=== PATIENT | female | born 1965 | race Caucasian/White ===

== ENCOUNTER 2016-09-28 21:38 | Emergency (ER) | payer MEDICAID, OTHER ==
[~2016-09-28] VITALS: Ht 154.9 cm; Wt 110.0 kg
[~2016-09-28 21:38] MED LIST: BENA20TA48 PO; LOSA50TA6 PO; METO50TA16 PO; NIFE30TA66 PO
[2016-09-28 21:55] VITALS: Ht 154.9 cm; Wt 110.0 kg
[2016-09-28] MEDS ORDERED: KETOROLAC 60 MG INJ IM STA (23:21)
--- NOTE | 2016-09-29 00:57 | ERD ---
ER Documentation Chief Complaint Date/Time DATE: 09/29/16 TIME: 00:54 Chief Complaint left leg pain x 5 days. denies injury. also c/o pain left arm/cough HPI This is a 51-year-old female presents to the ER complaining of left heel pain that extends into her left calf. Patient states that pain has been going on for the last 5 days pain is throbbing in quality it is worse whenever she moves. Patient denies any redness or swelling of her calf. She denies any chest pain, shortness of breath. Patient has not traveled anywhere recently. She has not had any recent surgeries and has never had any blood clots in her leg. She is also complaining of right thumb pain that extends into her wrist and forearm. Patient denies any trauma to her legs or arms. Patient denies any fevers or chills. Patient has not tried anything for the pain. ROS 12 point review of systems was done, all negative except per HPI. Medications Home Meds Active Scripts Ibuprofen* (Motrin*) 600 Mg Tab, 600 MG PO Q6H Y for PAIN AND OR ELEVATED TEMP, #30 TAB Prov:SOBEIDA GAXIOLA 09/29/16 Reported Medications Nifedipine* (Procardia XL*) 30 Mg/Bottle Tab.osm.24, 30 MG PO DAILY, TAB.SA 04/03/14 Benazepril Hcl* (Benazepril Hcl*) 20 Mg Tablet, 20 MG PO BID, TAB 04/03/14 Losartan Potassium* (Losartan Potassium*) 50 Mg Tablet, 50 MG PO BID, TAB 04/03/14 Metoprolol Succinate* (Toprol XL*) 50 Mg Tab.er.24h, 50 MG PO DAILY, TAB 04/03/14 Allergies Allergies: Coded Allergies: No Known Allergy (Unverified , 09/28/16) PMhx/Soc History of Surgery: Yes (C-[id number] ') Anesthesia Reaction: No Hx Neurological Disorder: No Hx Respiratory Disorders: Yes (ASTHMA) Hx Cardiac Disorders: Yes (HTN) Hx Psychiatric Problems: No Hx Miscellaneous Medical Probl: No Hx Alcohol Use: No Hx Substance Use: No Hx Tobacco Use: No Smoking Status: Never smoker Physical Exam Vitals Vital Signs Date Time Temp Pulse Resp B/P Pulse Ox O2 Delivery O2 Flow Rate FiO2 09/29/16 02:33 98.3 18 18 120/78 99 Room Air 09/28/16 21:55 97.7 84 20 136/84 99 Physical Exam GENERAL: The patient is well developed and appropriate for usual state of health , in no apparent distress. HEENT: Atraumatic. Conjunctivae are pink. Pupils equal, round, and reactive to light. Extraocular muscles are grossly intact. Bilateral tympanic membranes are clear with no evidence of erythema, effusion or dulling of the light reflex. The oropharynx is clear with no erythema or exudates. NECK: C-spine is soft and supple. There is no cervical lymphadenopathy. CHEST: Clear to auscultation bilaterally. There are no rales, wheezes or rhonchi. HEART: Regular rate and rhythm. No murmurs, clicks, rubs or gallops. ABDOMEN: Soft, nontender and nondistended. Good bowel sounds. No rebound or guarding. No gross peritonitis. No gross organomegaly or masses. No Thompson sign or McBurney point tenderness. BACK: No midline or flank tenderness. EXTREMITIES: Patient is tender to palpation to the right heel she is tender to palpation along the right calf. There is no edema or swelling of the calf. Patient does not have any knee pain she has normal range of motion of her knee. She is tender to palpation along the lateral left thumb, wrist and distal forearm. Patient has full range of motion of her thumb and wrist. No snuffbox tenderness. No elbow pain. He is neurovascularly intact. He has normal strength and sensation to radial ulnar and medial nerves. NEURO: Alert and oriented. SKIN: The skin is warm and dry. Results 24 hrs Current Medications Medications (Trade) Dose Ordered Sig/Oscar Route PRN Reason Start Time Stop Time Status Last Admin Dose Admin Ketorolac Tromethamine (Toradol) 60 mg ONCE STAT IM 09/28/16 23:21 09/28/16 23:23 DC 09/29/16 00:31 Procedures/MDM This is a 51-year-old female presents to the ER with multiple complaints. In regards to patient's leg pain this may be a strain. Patient did not have any evidence of DVT or fracture dislocation. I doubt compartment syndrome, osteomyelitis, deep space infection. Is neurovascularly intact. Patient may have a small avulsion fracture of the distal radius, because of this patient was put in a volar splint. Patient was neurovascularly intact before and after splint application. Patient needs to follow-up with her primary care doctor within 1-2 days or return to ER sooner if symptoms worsen. Patient will be sent home with ibuprofen for pain. Medical decision making assured with the patient she understands and agrees with plan. Departure Diagnosis: Primary Impression: Multiple complaints Condition: Stable SOBEIDA GAXIOLA Sep 29, 2016 00:57
--- NOTE | 2016-09-29 01:27 | RADRPT ---
PROCEDURE: RIGHT ANKLE - 3 VIEWS CLINICAL INDICATION: 51-year-old female with right ankle pain. TECHNIQUE: AP, oblique and lateral views of the right ankle were performed. The images reviewed on a PACS workstation. COMPARISON: None. FINDINGS: The bones of the ankle appear intact, with no evidence of fracture, dislocation, or subluxation. The joint spaces are preserved. The mortise appears intact. Bone mineralization is within normal limits . There is mild diffuse soft tissue swelling. IMPRESSION: 1. No acute fracture or dislocation. 2. Soft tissue swelling. .Booker Guerrero MD, Date Time Electronically viewed and signed by .Booker Guerrero MD, MD on 09/29/2016 01:27 .Rogelio/
--- NOTE | 2016-09-29 01:30 | RADRPT ---
PROCEDURE: LEFT FOREARM - 2 VIEWS CLINICAL INDICATION: 51-year-old female with left arm pain. TECHNIQUE: AP and lateral views of the left forearm were obtained. The images were viewed on a PAC S workstation. COMPARISON: None. FINDINGS: There is no evidence for an acute fracture or dislocation. The joint spaces are intact. The bone ma rrow mineralization is within normal limits. No radiopaque foreign body is seen. IMPRESSION: Unremarkable left forearm radiographs. .Booker Guerrero MD, MD Date Time Electronically viewed and signed by .Booker Guerrero MD, MD on 09/29/2016 01:29 .Rogelio/
--- NOTE | 2016-09-29 01:34 | RADRPT ---
PROCEDURE: XR Hand. CLINICAL INDICATION: Trauma. Pain. TECHNIQUE: Three views of the left hand were obtained. COMPARISON: No prior studies are available for comparison. FINDINGS: There is a small ossific density at the ventral aspect of the radius, possibly vascular calcificatio n. There are no definite fractures. Joint relationships are maintained. Bone mineralization is wi thin normal limits. Soft tissues are unremarkable. IMPRESSION: Small ossific density at the volar aspect of the distal radius, possibly a vascular calcification. Otherwise negative. RPTAT: HMVK .Ramos Jarvis MD, MD Date Time Electronically viewed and signed by .Ramos Jarvis MD, on 09/29/2016 01:33 .K/
--- NOTE | 2016-09-29 01:36 | RADRPT ---
PROCEDURE: XR Left Wrist. CLINICAL INDICATION: Trauma. Pain. TECHNIQUE: AP, lateral and oblique views of the left wrist were performed. COMPARISON: No prior studies are available for comparison. FINDINGS: Small ossific density adjacent to volar peripheral aspect of the distal radius. Bones are otherwise intact without evidence for fracture. Joint relationships are maintained. Bone mineralization is within normal limits. Soft tissues are otherwise unremarkable. IMPRESSION: Indeterminate small ossific density adjacent to the distal radius which may represent small avulsion fracture, radiopaque foreign body or vascular calcification. Otherwise negative. RPTAT: HMVK .Ramos Jarvis MD, Date Time Electronically viewed and signed by .Ramos Jarvis MD, on 09/29/2016 01:35 .K/
[2016-09-29] MEDS ORDERED: IBUP-1542 PO (02:04)
[2016-09-29 02:33] VITALS: BP 120/78; PULSE 18; RESP 18; TEMP 98.3
--- NOTE | 2016-09-29 08:34 | RADRPT ---
PROCEDURE: Ultrasound of the right lower extremity venous system. CLINICAL INDICATION: Right leg pain and swelling, deep venous thrombosis TECHNIQUE: Dawson scale with and without compression, color doppler, spectral doppler of the venous system of the right lower extremity was performed. Venous augmentation maneuvers were utilized. COMPARISON: No prior studies are available for comparison. FINDINGS: Common femoral vein: Patent. Superficial femoral vein: Patent. Popliteal vein: Patent. Calf veins: Patent. No soft tissue abnormalities are identified. IMPRESSION: No evidence of a deep vein thrombosis within the right lower extremity. RPTAT: AADD .Vince Ken MD, MD Date Time Electronically viewed and signed by .Vince Ken MD, MD on 09/29/2016 00:29 .B/
== END 2016-09-29 02:30 | disposition home or self-care (01) ==
LOC: FTE 21:38
DX: M79.605 Pain in left leg (principal); M79.644 Pain in right finger(s); I10 Essential (primary) hypertension; J45.909 Unspecified asthma, uncomplicated
CPT/HCPCS: 29125; 73090; 73110; 73130; 73610; 93971; J1885; 96372

== ENCOUNTER 2016-10-08 10:28 | Emergency (ER) | payer OTHER ==
[~2016-10-08] VITALS: Wt 110.0 kg
[~2016-10-08 10:28] MED LIST changes: +IBUP-1542 PO
[2016-10-08] MEDS ORDERED: HYDROmorphONE 1 MG/ML SYG IV STA ×2 (11:12→12:31)
[2016-10-08] MEDS ORDERED: ONDANSETRON 4 MG INJ IV STA ×2 (11:12→12:31)
[2016-10-08] MEDS ORDERED: AMLO5TAB4 PO (11:42)
[2016-10-08] MEDS ORDERED: LISI40TA9 PO (11:42)
[2016-10-08 11:59] LABS: ALBUMIN 4.3 g/dl (3.3-4.9); CHLORIDE 103 mmol/L (97-110)
[2016-10-08 12:00] LABS: POTASSIUM 4.9 mmol/L (3.5-5.1); SODIUM 142 mmol/L (135-144)
[2016-10-08 12:02] LABS: AMYLASE 73 U/L (11-123); CREATININE 0.72 mg/dl (0.44-1.00)
[2016-10-08 12:03] LABS: ALANINE AMINOTRANSFERASE 28 IU/L (13-69); ALBUMIN/GLOBULIN RATIO 1.22; ALKALINE PHOSPHATASE 108 IU/L (42-121); ANION GAP 19 (8-16); ASPARTATE AMINO TRANSFERASE 25 IU/L (15-46); BILIRUBIN,INDIRECT 0.3 mg/dl (0-1.1); BILIRUBIN,TOTAL 0.3 mg/dl (0.2-1.3); BLOOD UREA NITROGEN 29 mg/dl (7-20); CARBON DIOXIDE 25 mmol/L (21-31); CREATINE KINASE 51 IU/L (23-200); GLUCOSE 194 mg/dl (70-220); TOTAL PROTEIN 7.8 g/dl (6.1-8.1)
[2016-10-08 12:04] LABS: CALCIUM 9.3 mg/dl (8.4-10.2)
[2016-10-08 12:06] LABS: BASOPHILS % 0.6 % (0.0-2.0); C-REACTIVE PROTEIN 0.9 mg/dl (0.0-0.9); EOSINOPHILS # 0.2 10^3/ul (0.0-0.5); EOSINOPHILS % 3.3 % (0.0-7.0); HEMATOCRIT 45.7 % (37.0-47.0); HEMOGLOBIN 15.5 g/dl (12.0-16.0); LYMPHOCYTES # 1.8 10^3/ul (0.8-2.9); LYMPHOCYTES % 28.8 % (15.0-51.0); MEAN CORPUSCULAR HEMOGLOBIN 27.1 pg (29.0-33.0); MEAN CORPUSCULAR HGB CONC 33.9 g/dl (32.0-37.0); MEAN CORPUSCULAR VOLUME 79.9 fl (82.0-101.0); MEAN PLATELET VOLUME 9.4 fl (7.4-10.4); MONOCYTE # 0.3 10^3/ul (0.3-0.9); MONOCYTES % 5.4 % (0.0-11.0); NEUTROPHIL # 3.9 10^3/ul (1.6-7.5); NEUTROPHILS % 61.9 % (39.0-77.0); PLATELET COUNT 201 10^3/UL (140-440); RED BLOOD COUNT 5.72 10^6/ul (4.20-5.40); RED CELL DISTRIBUTION WIDTH 17.6 % (11.5-14.5); UNCORRECTED WBC 6.2 10^3/ul (4.8-10.8); WHITE BLOOD COUNT 6.2 10^3/ul (4.8-10.8)
[2016-10-08 12:08] LABS: CONDITION 1; LH ANALYZER COMMENTS 1
[2016-10-08 12:12] LABS: CK-MB 0.65 ng/ml (0.0-2.4)
[2016-10-08 12:17] LABS: TROPONIN-I < 0.012 ng/ml (0.00-0.12)
--- NOTE | 2016-10-08 13:18 | RADRPT ---
PROCEDURE: MRI of the left upper extremity CLINICAL INDICATION: Left upper extremity pain and swelling concern for necrotizing fasciitis TECHNIQUE: Multiplanar multisequence images of the left upper extremity without IV contrast utiliz ing multiple pulse sequences. Images were interpreted at a independent PACS workstation. COMPARISON: Radiographs of the left upper extremity June 29, 2017 FINDINGS: There is no evidence of acute fracture of the visualized portions of the left forearm. At the site of the small density near the radial styloid on the prior radiographs, there is tendinos is and tenosynovitis involving the first extensor tendon compartment (axial 41 and coronal 12) sugge stive of a day, remains tenosynovitis. Small calcific density is not well seen on MRI but may repre sent chronic inflammation at this location. There is no evidence of tendon tear. The remainder of the flexor extensor tendons are intact. There is no muscle atrophy or muscle edema . Bone marrow signal is normal. The assessment of the proximal carpal row is grossly unremarkable. There is no soft tissue gas or drainable fluid collection. IMPRESSION: 1. Findings are most compatible with Dequervain's tenosynovitis, manifest as moderate tendinosis an d tenosynovitis of the first extensor tendon compartment along the radial margin of the radial stylo id. The small density seen on plain films at this location likely represents a calcification relate d to chronic inflammation versus possibly calcium hydroxyapatite deposition, less likely an acute fr acture. 2. No soft tissue gas, drainable fluid collection, or findings suggest necrotizing fasciitis. RPTAT: UU .Buddy Klein MD, Date Time Electronically viewed and signed by .Buddy Klein MD, on 10/08/2016 13:17 .K/
--- NOTE | 2016-10-08 13:28 | ERD ---
ER Documentation Chief Complaint Date/Time DATE: 10/08/16 TIME: 13:17 Chief Complaint LEFT ARM PAIN FROM FX. RAN OUT OF PAIN MEDS. HPI This is a 51-year-old female that presents to the emergency department complaining of severe pain of her left upper extremity. The patient indicates that on September 29, 2016, 9 days prior to arrival she was seen at [facility]. She denies any recent remote trauma that she can recall but was complaining of pain in her left arm and lower extremity. Radiographic imaging have been obtained at that time of her left forearm, left hand and left wrist and indicated there could be a small avulsion fracture in the dorsal aspect of her wrist. Therefore the patient had been placed in a volar splint for immobilization and comfort. She indicates she is currently waiting to see an orthopedic surgeon and has been taking ibuprofen 600 mg for analgesic control. She states however that the pain has intensified to 10 out of 10 in intensity and is exacerbated with movement. She states there is been no swelling of the left upper extremity. She has had no fevers or shaking or chills. She denies any rashes or discoloration of the skin. She has had no shortness of breath at rest or exertion. She is right-handed dominant. She denies any numbness of the left upper extremity peer ROS All systems reviewed and are negative except as per history of present illness. Medications Home Meds Active Scripts Hydrocodone/Acetaminophen ([place] 5-325 Tablet) 1 Each Tablet, 1 EACH PO Q6, #12 TAB Prov:KAITLIN TEMPLE 10/08/16 Ibuprofen* (Motrin*) 600 Mg Tab, 600 MG PO Q6H Y for PAIN AND OR ELEVATED TEMP, #30 TAB Prov:KAITLIN TEMPLE 10/08/16 Reported Medications Amlodipine Besylate* (Norvasc*) 5 Mg Tablet, 5 MG PO DAILY, TAB 10/08/16 Lisinopril* (Lisinopril*) 40 Mg Tablet, 40 MG PO DAILY, #30 TAB 10/08/16 Discontinued Reported Medications Nifedipine* (Procardia XL*) 30 Mg/Bottle Tab.osm.24, 30 MG PO DAILY, TAB.SA 04/03/14 Benazepril Hcl* (Benazepril Hcl*) 20 Mg Tablet, 20 MG PO BID, TAB 04/03/14 Losartan Potassium* (Losartan Potassium*) 50 Mg Tablet, 50 MG PO BID, TAB 04/03/14 Metoprolol Succinate* (Toprol XL*) 50 Mg Tab.er.24h, 50 MG PO DAILY, TAB 04/03/14 Discontinued Scripts Ibuprofen* (Motrin*) 600 Mg Tab, 600 MG PO Q6H Y for PAIN AND OR ELEVATED TEMP, #30 TAB Prov:SOBEIDA GAXIOLA 09/29/16 Allergies Allergies: Coded Allergies: No Known Allergy (Unverified , 10/08/16) PMhx/Soc History of Surgery: No Anesthesia Reaction: No Hx Neurological Disorder: No Hx Respiratory Disorders: No Hx Cardiac Disorders: No Hx Psychiatric Problems: No Hx Miscellaneous Medical Probl: Yes (HTN) Hx Alcohol Use: No Hx Substance Use: No Hx Tobacco Use: No Smoking Status: Never smoker Physical Exam Vitals Vital Signs Date Time Temp Pulse Resp B/P Pulse Ox O2 Delivery O2 Flow Rate FiO2 10/08/16 13:59 98.8 59 20 123/64 99 10/08/16 10:34 98.8 75 20 216/118 99 Physical Exam Constitutional:Well-developed. Well-nourished. HEENT:Normocephalic. Atraumatic.Pupils were equal round reactive to light. Moist mucous membranes.No tonsillar exudates. Neck: No nuchal rigidity. No lymphadenopathy. No posterior cervical spine tenderness or step-offs. Respiratory: Not using accessory muscles of respiration.Lungs were clear to auscultation bilaterally. No rhonchi. No rales. No wheezing. Cardiovascular: Regular rate regular rhythm.No murmurs. No rubs were appreciated.S1, S2 normal. Distal pulses are palpable 2+ bilaterally. GI: Abdomen was soft. Nontender. Non Distended. No pulsatile abdominal masses or bruits. No rebound. No guarding. Bowel sounds were present and normal. Muscle skeletal: Full range of motion of both the upper and lower extremities bilaterally.Normal muscle tone.No assymetrical calf tenderness or swelling. Compartments of the bilateral upper extremities were soft. Patient had no skin changes or soft tissue swelling of the left upper extremity but had significant tenderness with pain out of proportion on the mid shaft of the left forearm. Flexion extension ulnar and radial deviation of the left wrist appear grossly normal. Skin: No petechia, no purpura. No lesions on the palms or the soles of the feet. No maculopapular rash. NEURO: Patient was alert, awake, orientated x3.No facial droop. Gait observed and normal with no ataxia.Speech had regular rate and rhythm. No focal neurological deficits. Result Diagram: 10/08/16 1121 10/08/16 1121 Results 24 hrs Laboratory Tests Test 10/08/16 11:21 Alanine Aminotransferase (ALT/SGPT) 28IU/L Albumin 4.3g/dl Albumin/Globulin Ratio 1.22 Alkaline Phosphatase 108IU/L Amylase Level 73U/L Anion Gap 19 Aspartate Amino Transf (AST/SGOT) 25IU/L Basophils # 0.010^3/ul Basophils % 0.6% Blood Morphology Comment Blood Urea Nitrogen 29mg/dl C-Reactive Protein 0.9mg/dl Calcium Level 9.3mg/dl Carbon Dioxide Level 25mmol/L Chloride Level 103mmol/L Creatine Kinase 51IU/L Creatine Kinase Index 1.3 Creatinine 0.72mg/dl Creatinine Kinase MB (Mass) 0.65ng/ml Direct Bilirubin 0.00mg/dl Eosinophils # 0.210^3/ul Eosinophils % 3.3% Erythrocyte Sedimentation Rate 9mm/Hr Globulin 3.50g/dl Glucose Level 194mg/dl Hematocrit 45.7% Hemoglobin 15.5g/dl Indirect Bilirubin 0.3mg/dl Lipase 119U/L Lymphocytes # 1.810^3/ul Lymphocytes % 28.8% Mean Corpuscular Hemoglobin 27.1pg Mean Corpuscular Hemoglobin Concent 33.9g/dl Mean Corpuscular Volume 79.9fl Mean Platelet Volume 9.4fl Monocytes # 0.310^3/ul Monocytes % 5.4% Neutrophils # 3.910^3/ul Neutrophils % 61.9% Nucleated Red Blood Cells # 0.010^3/ul Nucleated Red Blood Cells % 0.0/100WBC Platelet Count 14627^3/UL Potassium Level 4.9mmol/L Red Blood Count 5.7210^6/ul Red Cell Distribution Width 17.6% Sodium Level 142mmol/L Total Bilirubin 0.3mg/dl Total Protein 7.8g/dl Troponin I < 0.012ng/ml White Blood Count 6.210^3/ul Current Medications Medications (Trade) Dose Ordered Sig/Oscar Route PRN Reason Start Time Stop Time Status Last Admin Dose Admin Hydromorphone HCl (Dilaudid) 1 mg ONCE STAT IV 10/08/16 11:12 10/08/16 11:13 DC 10/08/16 11:23 Ondansetron HCl (Zofran Inj) 4 mg ONCE STAT IV 10/08/16 11:12 10/08/16 11:13 DC 10/08/16 11:22 Hydromorphone HCl (Dilaudid) 1 mg ONCE STAT IV 10/08/16 12:31 10/08/16 12:32 DC 10/08/16 13:20 Ondansetron HCl (Zofran Inj) 4 mg ONCE STAT IV 10/08/16 12:31 10/08/16 12:32 DC 10/08/16 13:20 Procedures/MDM The patient presented to the emergency department with nontraumatic severe pain of her left upper extremity and my differential diagnosis included but was not limited to necrotizing fasciitis, lymphangitis, thrombophlebitis, deep vein thrombosis, allergic reaction, neoplasm, gout or abscess. The patient had IV access established by nursing staff was given intravenous morphine and Zofran for analgesic control. The patient continued to ask for more analgesic medication given that she had pain out of proportion to physical exam I did feel is necessary to obtain an MRI to rule out a life-threatening injury such as necrotizing fasciitis. The patient is currently awaiting her MRI at this time. Ancillary laboratory work showed no evidence of leukocytosis or sepsis. I did repeat radiographic imaging of the left forearm, 2 views which showed no acute fracture or dislocation. The MRI result was read by the radiologist and indicated the followin. Findings are most compatible with Dequervain's tenosynovitis, manifest as moderate tendinosis and tenosynovitis of the first extensor tendon compartment along the radial margin of the radial styloid. The small density seen on plain films at this location likely represents a calcification related to chronic inflammation versus possibly calcium hydroxyapatite deposition, less likely an acute fracture. 2. No soft tissue gas, drainable fluid collection, or findings suggest necrotizing fasciitis. Observation Note: Time: 4 hours Family Hx: No Hypertension Evaluation: Multiple exams showed improving symptoms and no evidence of cellulitis, deep space infection or necrotizing fasciitis. There is no physical exam findings to suggest compartment syndrome. She was placed in a splint that immobilized the wrist and thumb to the interphalangeal joint and will be sent home with anti-inflammatory medication The patient does have outpatient follow-up with an orthopedic surgeon in the next several days and did feel comfortable being discharged home with [place] needed for analgesic control and a refill of her Motrin. The patient was discharged home in fair condition. They were instructed to return to the emergency department at any time if there was any worsening of their condition. The patient stated they would follow up with their PCP in the next 24-48 hours to initiate a suitable medication regimen under the care of their PCP as well as to allow their PCP to monitor any drug reactions. The patient was discharged home with prescriptions after they gave informed consent to the new medication. They were also fully informed by myself on the adverse effects and adverse drug interactions in order to provide adequate safeguards to prevent possible adverse reactions to medications. Departure Diagnosis: Primary Impression: Pain of left arm Additional Impression: Tenosynovitis, de Quervain Condition: Fair KAITLIN TEMPLE Oct 08, 2016 13:28
[2016-10-08] MEDS ORDERED: HYDR-906 PO (13:31)
[2016-10-08] MEDS ORDERED: IBUP-1542 PO (13:31)
--- NOTE | 2016-10-08 13:42 | RADRPT ---
PROCEDURE: Left forearm series CLINICAL INDICATION: Pain. TECHNIQUE: 2 views. COMPARISON: 09/29/2016 FINDINGS: No fractures are noted. The radius and ulna are unremarkable. The soft tissues are unremarkable. IMPRESSION: 1. No bony abnormalities are identified. RPTAT: HH .Al Recio MD, Date Time Electronically viewed and signed by .Al Recio MD, on 10/08/2016 13:41 .G/
[2016-10-08 14:48] VITALS: BP 123/64; PULSE 86; RESP 20; TEMP 98.3
== END 2016-10-08 15:32 | disposition home or self-care (01) ==
LOC: E/R 10:28
DX: M79.602 Pain in left arm (principal); M65.4 Radial styloid tenosynovitis [de Quervain]; I10 Essential (primary) hypertension; R40.2142 Coma scale, eyes open, spontaneous, at arrival to emergency department; R40.2252 Coma scale, best verbal response, oriented, at arrival to emergency department; R40.2362 Coma scale, best motor response, obeys commands, at arrival to emergency department
CPT/HCPCS: 29125; 73090; 73218; 80053; 82150; 82550; 82553; 83690; 84484; 85025; 85651; 86140; 87040; 93005; 96374; 96375; 96376; J1170; J2405; Z7502

== ENCOUNTER 2016-10-30 22:42 | Emergency (ER) | payer OTHER ==
[~2016-10-30] VITALS: Ht 162.6 cm; Wt 109.5 kg
[~2016-10-30 22:42] MED LIST changes: +AMLO5TAB4 PO; -BENA20TA48 PO; +HYDR-906 PO; +LISI40TA9 PO; -LOSA50TA6 PO; -METO50TA16 PO; -NIFE30TA66 PO
[2016-10-30 22:54] VITALS: Ht 162.6 cm; Wt 109.5 kg
[2016-10-31] MEDS ORDERED: ONDANSETRON 4 MG INJ IV STA (00:41)
[2016-10-31] MEDS ORDERED: SOD CHLORIDE 0.9% 500 ML IV STA (00:41)
[2016-10-31] MEDS ORDERED: morphine 4 MG/ML VIAL IV STA (00:41)
--- NOTE | 2016-10-31 01:19 | RADRPT ---
PROCEDURE: CHEST - 1 VIEW CLINICAL INDICATION: 51-year-old female with chest/abdominal pain. TECHNIQUE: A single frontal AP view of the chest was performed portably. The images were reviewed on a PACS workstation. COMPARISON: Chest x-ray April 03, 2014. FINDINGS: The cardiomediastinal silhouette is mildly prominent but without significant interval change. There is a shallow inspiration. There is mild bibasilar subsegmental atelectasis. There is no evidence for an infiltrate. There is no evidence for congestive heart failure. There is no evidence for pneu mothorax. The osseous structures are intact. IMPRESSION: Shallow inspiration with mild bibasilar subsegmental atelectasis. .Booker Guerrero MD, MD Date Time Electronically viewed and signed by .Booker Guerrero MD, on 10/31/2016 01:19 .M/
--- NOTE | 2016-10-31 01:41 | RADRPT ---
PROCEDURE: ULTRASOUND LIMITED ABDOMEN CLINICAL INDICATION: 51-year-old female with abdominal pain. TECHNIQUE: Multiple sonographic of the right upper quadrant of the abdomen were obtained. The imag es were reviewed on a PACS workstation. COMPARISON: None. FINDINGS: The pancreas is partially visualized and is otherwise normal. The liver displays diffuse increase echogenicity consistent with fatty infiltration. The liver shari ures 21.4 cm in length. No evidence of intrahepatic biliary ductal dilatation is seen. The portal a nd hepatic veins are unremarkable. The gallbladder demonstrates no wall thickening, sludge, nor stones. No pericholecystic fluid is see n. The common bile duct measures 5.1 mm and is not dilated. The right kidney displays normal echogenicity. The right kidney measures 12.0 cm in length. No calie ctasis or hydronephrosis is seen. No free fluid is seen. IMPRESSION: Hepatomegaly with diffuse fatty infiltration. .Booker Guerrero MD, MD Date Time Electronically viewed and signed by .Booker Guerrero MD, on 10/31/2016 01:40 .M/
[2016-10-31 02:29] LABS: ADD SCAN DIFF NO
[2016-10-31 02:34] LABS: BASOPHILS % 0.6 % (0.0-2.0); EOSINOPHILS # 0.3 10^3/ul (0.0-0.5); EOSINOPHILS % 3.7 % (0.0-7.0); HEMATOCRIT 44.7 % (37.0-47.0); HEMOGLOBIN 14.8 g/dl (12.0-16.0); LYMPHOCYTES % 41.9 % (15.0-51.0); MEAN CORPUSCULAR HEMOGLOBIN 26.7 pg (29.0-33.0); MEAN CORPUSCULAR HGB CONC 33.1 g/dl (32.0-37.0); MEAN CORPUSCULAR VOLUME 80.7 fl (82.0-101.0); MEAN PLATELET VOLUME 11.2 fl (7.4-10.4); MONOCYTE # 0.5 10^3/ul (0.3-0.9); MONOCYTES % 7.2 % (0.0-11.0); NEUTROPHIL # 3.3 10^3/ul (1.6-7.5); NEUTROPHILS % 46.5 % (39.0-77.0); PLATELET COUNT 161 10^3/UL (140-415); RED BLOOD COUNT 5.54 10^6/ul (4.20-5.40); RED CELL DISTRIBUTION WIDTH 16.7 % (11.5-14.5); WHITE BLOOD COUNT 7.1 10^3/ul (4.8-10.8)
[2016-10-31 02:49] LABS: ALBUMIN 3.9 g/dl (3.3-4.9); CHLORIDE 105 mmol/L (97-110)
[2016-10-31 02:50] LABS: POTASSIUM 4.2 mmol/L (3.5-5.1); SODIUM 141 mmol/L (135-144)
[2016-10-31 02:52] LABS: ALBUMIN/GLOBULIN RATIO 1.18; ANION GAP 18 (8-16); ASPARTATE AMINO TRANSFERASE 31 IU/L (15-46); BILIRUBIN,INDIRECT 0.4 mg/dl (0-1.1); BILIRUBIN,TOTAL 0.4 mg/dl (0.2-1.3); CARBON DIOXIDE 22 mmol/L (21-31); TOTAL PROTEIN 7.2 g/dl (6.1-8.1)
[2016-10-31 02:53] LABS: ALANINE AMINOTRANSFERASE 55 IU/L (13-69); ALKALINE PHOSPHATASE 126 IU/L (42-121); BLOOD UREA NITROGEN 22 mg/dl (7-20); CALCIUM 9.7 mg/dl (8.4-10.2); GLUCOSE 180 mg/dl (70-220)
[2016-10-31 02:56] LABS: ADD UMIC YES; URINE BILIRUBIN (Dip) NEGATIVE (NEGATIVE); URINE BLOOD (Dip) NEGATIVE (NEGATIVE); URINE COLOR LT. YELLOW (YELLOW); URINE GLUCOSE (Dip) NEGATIVE (NEGATIVE); URINE KETONES (Dip) NEGATIVE (NEGATIVE); URINE LEUKOCYTE ESTERASE (Dip) TRACE (NEGATIVE); URINE NITRITE (Dip) NEGATIVE (NEGATIVE); URINE TOTAL PROTEIN (Dip) NEGATIVE (NEGATIVE); URINE UROBILINOGEN (Dip) 0.2 E.U./dL (0.1-1.0)
[2016-10-31 03:15] LABS: BACTERIA,URINE MODERATE; SQUAMOUS EPITHELIAL CELL,UR FEW; URINE RBCS 0-2 /HPF (0)
[2016-10-31 03:19] LABS: PLATELET ESTIMATE PLT APPEAR ADEQUATE
[2016-10-31 03:20] LABS: TROPONIN-I < 0.012 ng/ml (0.00-0.12)
--- NOTE | 2016-10-31 05:03 | ERD ---
ER Documentation Chief Complaint Date/Time DATE: 10/31/16 TIME: 05:02 Chief Complaint mid abd pain x 3 days HPI This is a 51-year-old female admitted with abdominal pain for 3 days. Pain is mild to moderate intensity. No fevers no chills. No other current complaints. Mild associated nausea but no vomiting ROS All systems reviewed and are negative except as per history of present illness. Medications Home Meds Active Scripts Hydrocodone/Acetaminophen (Industry 5-325 Tablet) 1 Each Tablet, 1 EACH PO Q6, #12 TAB Prov:WINDYKAITLIN 10/08/16 Ibuprofen* (Motrin*) 600 Mg Tab, 600 MG PO Q6H Y for PAIN AND OR ELEVATED TEMP, #30 TAB Prov:ANURAG TEMPLEA 10/08/16 Reported Medications Amlodipine Besylate* (Norvasc*) 5 Mg Tablet, 5 MG PO DAILY, TAB 10/08/16 Lisinopril* (Lisinopril*) 40 Mg Tablet, 40 MG PO DAILY, #30 TAB 10/08/16 Allergies Allergies: Coded Allergies: No Known Allergy (Unverified , 10/08/16) PMhx/Soc History of Surgery: Yes (C SECTION) Anesthesia Reaction: No Hx Neurological Disorder: No Hx Respiratory Disorders: No Hx Cardiac Disorders: No Hx Psychiatric Problems: No Hx Miscellaneous Medical Probl: Yes (HTN) Hx Alcohol Use: No Hx Substance Use: No Hx Tobacco Use: Yes Smoking Status: Former smoker Physical Exam Vitals Vital Signs Date Time Temp Pulse Resp B/P Pulse Ox O2 Delivery O2 Flow Rate FiO2 10/31/16 03:30 98.3 75 20 158/63 97 Room Air 10/31/16 00:40 98.3 82 20 147/72 96 Room Air 10/30/16 22:54 98.3 97 20 179/78 97 Physical Exam Const: [] Head: Atraumatic Eyes: Normal Conjunctiva ENT: Normal External Ears, Nose and Mouth. Neck: Full range of motion..~ No meningismus. Resp: Clear to auscultation bilaterally Cardio: Regular rate and rhythm, no murmurs Abd: Soft, non tender, non distended. Normal bowel sounds Skin: No petechiae or rashes Back: No midline or flank tenderness Ext: No cyanosis, or edema Neur: Awake and alert Psych: Normal Mood and Affect Result Diagram: 10/31/16 0200 10/31/16 0200 Results 24 hrs Laboratory Tests Test 10/31/16 02:00 10/31/16 02:15 Alanine Aminotransferase (ALT/SGPT) 55IU/L Albumin 3.9g/dl Albumin/Globulin Ratio 1.18 Alkaline Phosphatase 126IU/L Anion Gap 18 Aspartate Amino Transf (AST/SGOT) 31IU/L Basophils # 0.010^3/ul Basophils % 0.6% Blood Urea Nitrogen 22mg/dl Calcium Level 9.7mg/dl Carbon Dioxide Level 22mmol/L Chloride Level 105mmol/L Clumped Platelets Creatinine 0.70mg/dl Direct Bilirubin 0.00mg/dl Eosinophils # 0.310^3/ul Eosinophils % 3.7% Globulin 3.30g/dl Glucose Level 180mg/dl Hematocrit 44.7% Hemoglobin 14.8g/dl Indirect Bilirubin 0.4mg/dl Lipase 124U/L Lymphocytes # 3.010^3/ul Lymphocytes % 41.9% Mean Corpuscular Hemoglobin 26.7pg Mean Corpuscular Hemoglobin Concent 33.1g/dl Mean Corpuscular Volume 80.7fl Mean Platelet Volume 11.2fl Monocytes # 0.510^3/ul Monocytes % 7.2% Neutrophils # 3.310^3/ul Neutrophils % 46.5% Nucleated Red Blood Cells # 0.010^3/ul Nucleated Red Blood Cells % 0.0/100WBC Platelet Count 13260^3/UL Platelet Estimate PLT APPEAR ADEQUATE Potassium Level 4.2mmol/L Red Blood Count 5.5410^6/ul Red Cell Distribution Width 16.7% Sodium Level 141mmol/L Total Bilirubin 0.4mg/dl Total Protein 7.2g/dl Troponin I < 0.012ng/ml White Blood Count 7.110^3/ul Urine Bacteria MODERATE Urine Bilirubin NEGATIVE Urine Clarity CLEAR Urine Color LT. YELLOW Urine Glucose NEGATIVE% Urine Hemoglobin NEGATIVE Urine Ketones NEGATIVE Urine Leukocyte Esterase TRACE Urine Microscopic RBC 0-2/HPF Urine Microscopic WBC 10-25/HPF Urine Nitrite NEGATIVE Urine Specific [place] 1.010 Urine Squamous Epithelial Cells FEW Urine Total Protein NEGATIVE Urine Urobilinogen 0.2 E.U./dL Urine pH 5.5 Current Medications Medications (Trade) Dose Ordered Sig/Oscar Route PRN Reason Start Time Stop Time Status Last Admin Dose Admin Sodium Chloride (NS) 500 ml @ 500 mls/hr Q1H STAT IV 10/31/16 00:41 10/31/16 01:40 DC 10/31/16 01:46 Morphine Sulfate (morphine) 4 mg ONCE STAT IV 10/31/16 00:41 10/31/16 00:42 DC Ondansetron HCl (Zofran Inj) 4 mg ONCE STAT IV 10/31/16 00:41 10/31/16 00:42 DC Procedures/MDM CBC: [no e/o of systemic infection or severe anemia] CMP: [no e/o severe acidosis, alkalosis, renal failure, diabetic ketoacidosis, liver disease] Lipase: [no e/o pancreatitis] PT/INR: [normal coagulation] Urine: [no e/o acute infection or hematuria] Medical decision making: Patient with epigastric movements in etiology. His pain pain is resolved. She was discharged with Zantac Carafate and Zofran. His return 8 hours for serial abdominal exams. Differential included pancreatitis, cholecystitis, choledocholithiasis, biliary colic although the diagnoses were considered and ultimately describing on the patient's physical examination diagnostic data. Departure Diagnosis: Primary Impression: Abdominal pain Abdominal location: epigastric Qualified Code: R10.13 - Epigastric pain Condition: Stable NISHI ALVAREZ Oct 31, 2016 05:03
[2016-10-31] MEDS ORDERED: RANI150T9 PO (05:05)
[2016-10-31] MEDS ORDERED: SUCR1TAB56 PO (05:05)
[2016-10-31 06:18] VITALS: BP 177/85; PULSE 71; RESP 20; TEMP 98.3
== END 2016-10-31 06:18 | disposition home or self-care (01) ==
LOC: E/R 22:42
DX: R10.13 Epigastric pain (principal); I10 Essential (primary) hypertension; R11.0 Nausea; Z87.891 Personal history of nicotine dependence
CPT/HCPCS: 36415; 71010; 76705; 80053; 81001; 83690; 84484; 85025; 93005; J7040; Z7502; 81003; J2270; J2405